=== PATIENT | male | born 2000 | race Caucasian/White ===

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

== ENCOUNTER → 2022-06-10 12:12 | Outpatient (BNVA) | payer MEDICAID, SELFPAY | PROVIDERS: Visit Provider Registered Nurse Neonatal Intensive Care | DX: J02.9 Acute pharyngitis, unspecified (principal) | CPT/HCPCS: 87070; 87071; 87880 ==

== ENCOUNTER 2022-08-23 21:57 | Emergency (ER) | payer MEDICAID, SELFPAY ==
[2022-08-23 21:59] VITALS: BP 142/97; PULSE 88; RESP 20; TEMP 36.4; O2SAT 97
[2022-08-23] MEDS: amoxicillin 500 mg Capsule 875 MG PO (22:33)
[2022-08-23] MEDS: ketorolac 60 mg/2 mL INJ IM (22:33)
[2022-08-23 22:38] VITALS: RESP 16; O2SAT 94
--- NOTE | 2022-08-24 02:29 | W.ED.DENTAL ---
HPI - Dental/Oral General: Chief complaint: Dental/Oral Stated complaint: Tooth ache\Feels his face is being crushed Time Seen by Provider: 08/23/22 21:59 History of Present Illness: Patient is in today for complaints of left upper tooth pain. Patient reports that just starting today he developed pain in the left side upper jaw at his teeth. 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 He states that he has not been to a dentist in years because he cannot afford it. He denies any fever, chills, nausea, vomiting. Associated symptoms: Denies fever(s) Review of Systems Const: Denies: fever(s) or chills ENMT: Reports: dental pain Card: Denies: chest pain, palpitations or irregular heart rhythm Resp: Denies: dyspnea, productive cough or non-productive cough GI: Denies: abdominal pain, nausea or vomiting : Denies: flank pain, difficulty urinating or dysuria Neuro: Denies: headache(s) PFSH ED PFSH: Family History Sister Spina bifida Father Bipolar 1 disorder Sister ADHD Social History Smoking and tobacco status: never smoked Physical Exam Const: COMMON NORMALS: no acute distress, patient oriented x3 and alert HENMT: TEETH & GINGIVA: Yes caries, Yes gingiva abnormal edematous and tender, Yes poor dentition and Yes teeth discoloration THROAT: posterior oropharynx normal and uvula midline OTHER: The teeth on his left upper jaw are mostly broken and there are numerous caries. His very far posterior molar on the left upper jaw is broken flush with the gingiva. There is gingival erythema and some edema. No drainable abscess is appreciated. Neck/C-Spine: COMMON NORMALS: no JVD Resp: COMMON NORMALS: normal respiratory effort and No use of accessory muscles Cardio: COMMON NORMALS: no JVD, regular rate, regular rhythm, S1 normal heart sound present, S2 normal heart sound present and No murmurs present (Cardio) RATE: regular rate RHYTHM: regular rhythm HEART SOUNDS: S1 normal heart sound present and S2 normal heart sound present Neuro: COMMON NORMALS: patient oriented x3 SENSORIUM/ORIENTATION: Yes alert Course Vital Signs: Vital signs: Vital Signs Temperature 97.6 F 08/23/22 21:59 Pulse Rate 88 08/23/22 21:59 Respiratory Rate 16 08/23/22 22:38 Blood Pressure 142/97 08/23/22 21:59 Pulse Oximetry 94 08/23/22 22:38 MDM - Dental/Oral Medical Decision Making Considered dental caries versus dental abscess versus gingival abscess versus gingivitis versus dental infection Treat patient to cover for a dental infection with no drainable abscess appreciated. Start patient on antibiotic medication first dose given in ER tonight. Dose of Toradol IM given tonight. Advised patient he needs follow-up with a dentist DUNG for ongoing treatment. Advised patient to return to the ER for new or worsening symptoms. Discharge Plan Discharge Patient Disposition: Home Clinical Impression: Dental caries, Toothache, Dental infection Condition: Stable Prescriptions: New amoxicillin 875 mg tablet 875 mg PO BID 10 Days Qty: 20 0RF No Action fluticasone propionate [Flonase Allergy Relief] 50 mcg/actuation spray,suspension 1 spray intranasal BID Qty: 16 0RF Rx Instructions: administer into each nostril Discharge Orders: Discharge ED (Routine); Ordered 08/23/22 Ordered By: Lana Cortez Discharge Diet: Usual diet Discharge Activity: Resume usual activity Patient Instructions: Dental Caries (Cavities) Activity Restrictions/Additional Instructions: Take antibiotics as directed starting tomorrow. Follow-up with the dentist as soon as possible. You may use warm salt water gargles, warm compresses. Alternate Tylenol and Motrin for pain. 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
== END 2022-08-23 22:39 | disposition home or self-care (01) ==
PROVIDERS: Emergency Provider Nurse Practitioner Family
DX: K02.9 Dental caries, unspecified (principal); K04.7 Periapical abscess without sinus
CPT/HCPCS: 96372; 99284; J1885

== ENCOUNTER 2022-11-22 08:58 | Inpatient (IN) | payer MEDICAID, SELFPAY ==
--- NOTE | 2022-11-22 09:03 | W.ED.PSYCHS ---
HPI - Psych General: Chief Complaint: Psychiatric Symptoms Stated Complaint: HI Time Seen by Provider: 11/22/22 09:02 Source: patient Mode of arrival: ambulatory Limitations: no limitations History of Present Illness: Patient is a 22-year-old male who presents to ED today requesting psychiatric evaluation and hospitalization. Patient tells me he is having multiple symptoms that he would like evaluated for. He states he believes he may have multiple personality disorder as he feels like he will blackout and commit physical violence on his siblings and then not remember doing it. He states he has voices that tell him different ways that he can kill people. He states at work the other day at [employer] he had daydreams throwing his coworkers onto the grill and in the deep fryer to kill them. He states while he was young and at school these voices would tell him different ways that he could kill his classmates with items found within the school. He states the voices have told him 8 different ways he can kill somebody with his bare hands . Patient often times states he has feelings of not being in this world . Patient denies suicidal ideations. MD complaint: other (HI) Onset (ago): year(s) Duration: intermittent History of same: Yes Relieving factors: none Exacerbating factors: none Associated psychiatric symptoms: homicidal ideation, auditory hallucinations and visual hallucinations Associated symptoms: Reports auditory hallucinations, visual hallucinations, depression and homicidal ideation; Deny suicidal ideation Treatments prior to arrival: none Review of Systems Const: Denies: fever(s) or chills Card: Denies: chest pain, palpitations, lightheadedness or syncope Resp: Denies: dyspnea GI: Denies: abdominal pain, nausea, vomiting or diarrhea Skin/Breast: Denies: rash Neuro: Denies: headache(s) Psych: Reports: anxiety, depression, irritability, visual hallucinations, auditory hallucinations and homicidal ideation; Denies: suicidal ideation PFS ED PFSH: Family History Sister Spina bifida Father Bipolar 1 disorder Sister ADHD Social History Smoking and tobacco status: never smoked Substance/Drug Use: never Physical Exam Const: COMMON NORMALS: no acute distress, patient oriented x3, alert and well nourished GENERAL APPEARANCE: cooperative and well kempt Resp: COMMON NORMALS: normal respiratory effort and clear to auscultation bilaterally AUSCULTATION: clear to auscultation bilaterally Cardio: COMMON NORMALS: regular rate and regular rhythm RATE: regular rate RHYTHM: regular rhythm Neuro: COMMON NORMALS: patient oriented x3 SENSORIUM/ORIENTATION: Yes alert Psych: COMMON NORMALS: mental status grossly normal, Normal thought process present, cooperative, normal affect, speech normal, activity/motor behavior normal and denies suicidal ideation APPEARANCE: Yes grossly normal and Yes well kempt ATTITUDE: Yes calm ACTIVITY/MOTOR BEHAVIOR: Yes appropriate eye contact and No psychomotor agitation SPEECH: Yes normal speech MOOD & AFFECT: Yes euthymic mood THOUGHT PROCESS: Normal thought process present ATTENTION/CONCENTRATION: Yes attention grossly intact and Yes concentration grossly intact MEMORY/COGNITION: Yes memory grossly intact and Yes cognition grossly intact INSIGHT: Good insight present (Psych) JUDGEMENT: Good judgement present (Psych) Skin: COMMON NORMALS: no rashes or lesions noted GENERAL SKIN EXAM: no rashes or lesions noted Course Consultations: Consultation #1: Dr. Fountain-accepts admission to [facility] Vital Signs: Vital signs: Vital Signs Temperature 97.9 F 11/22/22 11:26 Pulse Rate 81 11/22/22 09:13 Respiratory Rate 18 11/22/22 09:13 Blood Pressure 148/108 11/22/22 09:13 Pulse Oximetry 97 11/22/22 09:13 Oxygen Delivery Me thod Room Air 11/22/22 09:[address] [facility] - Psych Medical Decision Making Patient will be admitted to NPU for homicidal ideations and hallucinations. Lab Data 11/22/22 10:35 11/22/22 10:35 Laboratory Results WBC 5.7 10^3/uL (4.0-10.0) 11/22/22 10:35 RBC 5.75 10^6/uL (4.1-5.3) H 11/22/22 10:35 Hgb 16.3 g/dL (11.7-16.6) 11/22/22 10:35 Hct 46.9 % (42.0-52.0) 11/22/22 10:35 MCV 81.6 fl (80-94) 11/22/22 10:35 MCH 28.3 pg (28.0-34.0) 11/22/22 10:35 MCHC 34.8 g/dL (30.0-36.0) 11/22/22 10:35 RDW 12.2 % (12.1-15.1) 11/22/22 10:35 Plt Count 298 10^3/cmm (130-400) 11/22/22 10:35 MPV 8.7 fL (7.4-10.4) 11/22/22 10:35 Neut % (Auto) 54.3 % 11/22/22 10:35 Lymph % (Auto) 34.0 % 11/22/22 10:35 [place] % (Auto) 7.4 % 11/22/22 10:35 Eos % (Auto) 2.5 % 11/22/22 10:35 Baso % (Auto) 1.1 % 11/22/22 10:35 Neut # (Auto) 3.08 10^3/uL (1.8-7.7) 11/22/22 10:35 Lymph # (Auto) 1.9 10^3/uL (0.8-4.8) 11/22/22 10:35 [place] # (Auto) 0.4 10^3/uL (0.2-0.9) 11/22/22 10:35 Eos # (Auto) 0.1 10^3/uL (0.0-0.8) 11/22/22 10:35 Baso # (Auto) 0.1 10^3/uL (0.0-0.1) 11/22/22 10:35 Nucleated RBC % (auto) 0 % 11/22/22 10:35 Nucleated RBCs # 0.0 /100WBC 11/22/22 10:35 Sodium 139 mmol/L (136-145) 11/22/22 10:35 Potassium 4.1 mmol/L (3.5-5.1) 11/22/22 10:35 Chloride 102 mmol/L (98-107) 11/22/22 10:35 Carbon Dioxide 27 mmol/L (22-29) 11/22/22 10:35 Anion Gap 14.1 (5-19) 11/22/22 10:35 BUN 10 mg/dL (6-20) 11/22/22 10:35 Creatinine 1.0 mg/dL (0.7-1.2) 11/22/22 10:35 GFR Calculation 94.3 mL/min (90-130) 11/22/22 10:35 Glucose 84 mg/dL (65-115) 11/22/22 10:35 Calculated Osmolality 286 mOsm/kg (285-295) 11/22/22 10:35 Calcium 9.6 mg/dL (8.5-10.5) 11/22/22 10:35 Total Bilirubin 1.1 mg/dL (0.15-1.2) 11/22/22 10:35 AST 69 U/L (0-40) H 11/22/22 10:35 ALT 116 U/L (0-41) H 11/22/22 10:35 Alkaline Phosphatase 98 U/L (40-130) 11/22/22 10:35 Total Protein 8.0 g/dL (6.6-8.7) 11/22/22 10:35 Albumin 4.8 g/dL (3.5-5.2) 11/22/22 10:35 Globulin 3.2 g/dL (1.3-4.6) 11/22/22 10:35 Salicylates < 0.3 mg/dL (3-10) L 11/22/22 10:35 Urine Opiates Screen Negative ng/mL (Negative) 11/22/22 11:01 Acetaminophen < 5.0 ug/mL (10-30) L 11/22/22 10:35 Ur Barbiturates Screen Negative ng/mL (Negative) 11/22/22 11:01 Ur Phencyclidine Scrn Negative ng/mL (Negative) 11/22/22 11:01 Ur Amphetamines Screen Negative ng/mL (Negative) 11/22/22 11:01 U Benzodiazepines Scrn Negative ng/mL (Negative) 11/22/22 11:01 Urine Cocaine Screen Negative ng/mL (Negative) 11/22/22 11:01 U Marijuana (THC) Screen Positive ng/mL (Negative) H 11/22/22 11:01 Ethyl Alcohol < 10 mg/dL (0-10) 11/22/22 10:35 Discharge Plan Discharge Patient Disposition: Admitted As Inpatient Clinical Impression: Homicidal ideations, Hallucinations Condition: Stable Prescriptions: No Action No Known Home Medications Coding Level of Care Code 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
[2022-11-22 09:10] VITALS: BMI 31.1
[2022-11-22 09:13] VITALS: BP 148/108; PULSE 81; RESP 18; O2SAT 97
[2022-11-22 10:59] LABS: Basophils # 0.1 10^3/uL (0.0-0.1); Basophils % 1.1 %; Eosinophils # 0.1 10^3/uL (0.0-0.8); Eosinophils % 2.5 %; Hematocrit 46.9 % (42.0-52.0); Hemoglobin 16.3 g/dL (11.7-16.6); Lymphocytes # 1.9 10^3/uL (0.8-4.8); Mean Corpuscular HGB Conc 34.8 g/dL (30.0-36.0); Mean Corpuscular Hemoglobin 28.3 pg (28.0-34.0); Mean Corpuscular Volume 81.6 fl (80-94); Mean Platelet Volume 8.7 fL (7.4-10.4); Monocytes # 0.4 10^3/uL (0.2-0.9); Monocytes % 7.4 %; Neutrophils # 3.08 10^3/uL (1.8-7.7); Neutrophils % 54.3 %; Nucleated Red Blood Cells % 0 %; Platelet Count 298 10^3/cmm (130-400); Red Blood Count 5.75 10^6/uL (4.1-5.3); Red Cell Distribution Width 12.2 % (12.1-15.1); White Blood Count 5.7 10^3/uL (4.0-10.0)
[2022-11-22 11:15] LABS: Alanine Aminotransferase 116 U/L (0-41); Albumin Level 4.8 g/dL (3.5-5.2); Alkaline Phosphatase 98 U/L (40-130); Anion Gap 14.1 (5-19); Aspartate Amino Transferase 69 U/L (0-40); Blood Urea Nitrogen 10 mg/dL (6-20); Calcium 9.6 mg/dL (8.5-10.5); Carbon Dioxide 27 mmol/L (22-29); Chloride 102 mmol/L (98-107); Creatinine Clr Calc Pharmacy 145.9244; Globulin 3.2 g/dL (1.3-4.6); Glomerular Filtration Rate 94.3 mL/min (90-130); Glucose 84 mg/dL (65-115); Osmolality Calculated 286 mOsm/kg (285-295); Potassium 4.1 mmol/L (3.5-5.1); Sodium 139 mmol/L (136-145); Total Bilirubin 1.1 mg/dL (0.15-1.2)
[2022-11-22 11:18] LABS: Acetaminophen < 5.0 ug/mL (10-30); Alcohol Level < 10 mg/dL (0-10); Salicylate < 0.3 mg/dL (3-10)
[2022-11-22 11:26] VITALS: TEMP 36.6
[2022-11-22 11:59] LABS: Amphetamines Screen Urine Negative (Negative); Barbiturates Screen Urine Negative (Negative); Benzodiazepines Screen Urine Negative (Negative); Cocaine Screen Urine Negative (Negative); Opiate Screen Urine Negative (Negative); PCP Screen Urine Negative (Negative); THC Screen Urine Positive (Negative)
[2022-11-22 13:54] VITALS: BP 123/80
[2022-11-22 14:07] VITALS: BP 120/83; PULSE 70; RESP 18; TEMP 36.7; O2SAT 97
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
[2022-11-22 22:00] VITALS: BP 126/85; PULSE 62; RESP 16; TEMP 36.8; O2SAT 98
[2022-11-23 05:59] VITALS: RESP 16
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
[2022-11-23] MEDS: buPROPion XL (24 HR) 150 mg Tablet PO (13:59)
[2022-11-23 14:00] VITALS: BP 135/79; PULSE 97; RESP 20; TEMP 36.8; O2SAT 98
[2022-11-23 20:10] VITALS: BP 128/91; PULSE 82; RESP 18; TEMP 36.4; O2SAT 99
[2022-11-24 06:00] VITALS: RESP 16
[2022-11-24] MEDS: buPROPion XL (24 HR) 150 mg Tablet PO (09:42)
[2022-11-24 14:00] VITALS: BP 117/86; PULSE 119; RESP 20; TEMP 36.9; O2SAT 93
[2022-11-24] MEDS: acetaminophen 325 mg Tablet 650 MG PO (16:57)
--- NOTE | 2022-11-24 19:21 | W.PM.NPUPNS ---
Subjective NPU Subjective: Patient presents today reporting that things are better. He reports that he has had clarity of thought which is significantly better than he has previously. He reports that the medication has worked effectively and he is feeling safe and not having any voices or unsavory thoughts the possibility of discharge in the next 48 hours and agreed to talk about the possibility of him leaving in the morning tomorrow. Mental Status Exam MSE Comments: This is a overweight versus obese white male in hospital scrubs with adequate grooming and eye contact. No abnormal movements except for mild psychomotor retardation. Cooperative with exam and mild distress. Speech was slightly decreased rate and volume. Mood described as better, affect congruent. Thought process organized. Thought content: Patient denied suicidal or homicidal ideation, there were no delusions reported or noted, he denied auditory or visual hallucinations. Attention and concentration were intact and memory was mostly reliable but none were formally tested. He is alert and oriented x3. Insight and judgment limited, but improving impulse control limited. Vitals/I&O/Wt Last Vital Signs Temp 98.5 F 11/24/22 14:00 Pulse 119 H 11/24/22 14:00 Resp 20 H 11/24/22 14:00 BP 117/86 11/24/22 14:00 Pulse Ox 93 11/24/22 14:00 O2 Del Method Room Air 11/23/22 20:10 Data NPU 11/22/22 10:35 11/22/22 10:35 A&P Assessment and plan (1) Homicidal ideations: (2) Hallucinations: (3) Viral URI: (4) Major depressive disorder, recurrent: (5) Anxiety disorder, unspecified: Plan This is a 22-year-old white male with a long history of auditory hallucinations without treatment some addictive behaviors presenting with depression and anxiety in addition to the auditory hallucinations somewhat ambivalent about treatment but open to trying some options. 1. Started Wellbutrin XL 150 mg p.o. every morning. He is currently resistant to starting the Abilify and reporting that he has had dramatic improvement. 2. Encourage individual, group and milieu therapy. 3. Continue every 15 minute checks for safety. 4. Encourage sober living treatment after discharge at the highest level of care to which he is willing to commit. Involuntary Hold Information 96 Hour Hold: 96 Hour Involuntary Admission: No Attestations NPU Medical Necessity Statement*: Inpatient hospitalization is medically necessary and the clinically appropriate intervention at this time. We will monitor/initiate medications and make changes as indicated. Likely length of stay 3 to 5 days Coding Level of Care Code Acute Code for Chg Fwd Diagnoses Homicidal ideations R45.850 Hallucinations R44.3 Viral URI J06.9 Major depressive disorder, recurrent F33.9 Anxiety disorder, unspecified F41.9
[2022-11-24 21:57] VITALS: RESP 15
[2022-11-25 06:00] VITALS: BP 128/93; PULSE 89; RESP 18; TEMP 36.4; O2SAT 99
[2022-11-25] MEDS: buPROPion XL (24 HR) 150 mg Tablet PO (08:52)
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
[2022-11-25 11:23] VITALS: BP 128/93; PULSE 89; RESP 18; TEMP 36.4; O2SAT 99
== END 2022-11-25 12:50 | disposition home or self-care (01) | DRG 885 ==
LOC: ER 12:08 → NP 13:38
PROVIDERS: Admitting Provider Psychiatry & Neurology Psychiatry; Emergency Provider Physician Assistant; Visit Provider Psychiatry & Neurology Psychiatry
DX: F33.9 Major depressive disorder, recurrent, unspecified (principal); R44.0 Auditory hallucinations; F41.9 Anxiety disorder, unspecified; R45.850 Homicidal ideations; E66.9 Obesity, unspecified; Z68.31 Body mass index [BMI] 31.0-31.9, adult; Z81.8 Family history of other mental and behavioral disorders
CPT/HCPCS: 36415; 80053; 80306; 80307; 85025; 96365; 97165; 99285

== ENCOUNTER 2023-04-21 15:33 | Emergency (ER) | payer SELFPAY ==
[2023-04-21 15:45] VITALS: BP 140/86; PULSE 73; RESP 18; TEMP 36.8; O2SAT 97
--- NOTE | 2023-04-21 16:19 | ED.C_ITS ---
HPI - Psych General: Chief Complaint: Psychiatric Symptoms Stated Complaint: PSYCH EVAL; SYNCOPE Time Seen by Provider: 04/21/23 15:49 History of Present Illness: Patient presents to the ER for syncope and psych eval. Patient states he fell at work today but is on for sure if he hit his head and denies any pain at this time. 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 Patient states sometimes a Felipe is not here that he has dark and that he gets a when he flips Felipe is here now. Patient does state he hears voices and the voices tell him to hurt himself and hurt other people but he has not acted upon these and does not have a plan. Patient has been inpatient in our psychiatric unit before. Review of Systems General: Reports: 10 or more systems reviewed and unremarkable except in HPI and below PFSH ED PFSH: Medical History SADIA (generalized anxiety disorder) Psychiatric care Family History Sister Spina bifida Father Bipolar 1 disorder Sister ADHD Social History Smoking and tobacco status: never smoked Substance/Drug Use: never Physical Exam Const: COMMON NORMALS: no acute distress, average body habitus, patient oriented x3, no limitations, healthy appearing, alert and well nourished HENMT: COMMON NORMALS: normocephalic, atraumatic, hearing grossly normal bilaterally, external ears normal, Normal external nose present and moist oral mucous membranes HEAD & SCALP: normocephalic and atraumatic NOSE: Normal external nose present EXTERNAL EAR: Yes external ears normal Eye: COMMON NORMALS: Equal, round and reactive pupils present, EOMs intact bilaterally, conjunctivae normal and no scleral icterus CONJUNCTIVA: Yes conjunctivae normal PUPIL: Yes Equal, round and reactive pupils present Neck/C-Spine: COMMON NORMALS: full ROM, no lymphadenopathy, supple, no m eningeal signs, no JVD and Thyroid normal THYROID: Thyroid normal Lymph: LYMPHATIC: no lymphadenopathy noted Chest: COMMONS NORMALS: normal inspection of the chest and normal palpation of entire chest wall Resp: COMMON NORMALS: normal respiratory effort, No retractions, No use of accessory muscles and clear to auscultation bilaterally AUSCULTATION: clear to auscultation bilaterally Cardio: COMMON NORMALS: no JVD, regular rate, regular rhythm, S1 normal heart sound present, S2 normal heart sound present, No gallops present (Cardio), No clicks present (Cardio), No murmurs present (Cardio) and No rub (Cardio) R ATE: regular rate RHYTHM: regular rhythm HEART SOUNDS: S1 normal heart sound present and S2 normal heart sound present GI: COMMON NORMALS: Normal to inspection, nondistended, normoactive bowel sounds present, Soft to palpation, non-tender, No hepatosplenomegaly present and no masses PALPATION: Yes Soft to palpation and Yes No hepatosplenomegaly present : COMMON NORMALS: Yes no CVA tenderness BLADDER/KIDNEY EXAM: Yes no CVA tenderness Back/Pelvis: COMMON NORMALS: no CVA tenderness Neuro: COMMON NORMALS: patient oriented x3 SENSORIUM/ORIENTATION: Yes alert MENINGEAL SIGNS: Yes no meningeal signs Course Vital Signs: Vital signs: Vital Signs Temperature 98.2 F 04/21/23 15:45 Pulse Rate 73 04/21/23 15:45 Respiratory Rate 18 04/21/23 15:45 Blood Pressure 140/86 04/21/23 15:45 Pulse Oximetry 97 04/21/23 15:45 Oxygen Delivery Me thod Room Air 04/21/23 15:45 MDM - Psych Medical Decision Making We are waiting for his getting all the results back patient decided he wanted to leave, and wanted to leave immediately. I went talk with him about his lab results and talking to Dr. Fountain and getting his opinion but he just dated he just wanted to leave I ask him if I could finish his paperwork which would only take about 10 minutes and then we can officially discharge him and he just that he wanted to leave. So patient will sign an AMA form and will leave. Patient is not suicidal or homicidal at this moment and he knows that if he becomes either 1 of these to come back immediately. Differential Diagnosis Unlikely acute psychosis, chronic schizophrenia, suicidal ideation, bipolar disorder, depression, drug-induced psychotic disorder or acute anxiety Medical Records I reviewed the patient's medical records. Lab Data I reviewed the patient's lab results. 04/21/23 15:50 04/21/23 15:50 Laboratory Results WBC 8.83 10^3/uL (3.29-11.43) 04/21/23 15:50 RBC 5.42 10^6/uL (3.85-5.65) 04/21/23 15:50 Hgb 15.10 g/dL (11.27-16.99) 04/21/23 15:50 Hct 44.2 % (37-53) 04/21/23 15:50 MCV 81.5 fl (82-101) L 04/21/23 15:50 MCH 27.9 pg (27-33) 04/21/23 15:50 MCHC 34.2 g/dL (30-55) 04/21/23 15:50 RDW 12.4 % (12.1-15.1) 04/21/23 15:50 Plt Count 369 10^3/cmm (157-399) 04/21/23 15:50 MPV 9.0 fL (7.4-10.4) 04/21/23 15:50 Neut % (Auto) 62.3 % 04/21/23 15:50 Lymph % (Auto) 28.2 % 04/21/23 15:50 [place] % (Auto) 6.5 % 04/21/23 15:50 Eos % (Auto) 1.9 % 04/21/23 15:50 Baso % (Auto) 0.8 % 04/21/23 15:50 Neut # (Auto) 5.50 10^3/uL (1.8-7.7) 04/21/23 15:50 Lymph # (Auto) 2.5 10^3/uL (0.8-4.8) 04/21/23 15:50 [place] # (Auto) 0.6 10^3/uL (0.2-0.9) 04/21/23 15:50 Eos # (Auto) 0.2 10^3/uL (0.0-0.8) 04/21/23 15:50 Baso # (Auto) 0.1 10^3/uL (0.0-0.1) 04/21/23 15:50 Nucleated RBC % (auto) 0 % 04/21/23 15:50 Nucleated RBCs # 0.0 /100WBC 04/21/23 15:50 Sodium 141 mmol/L (136-145) 04/21/23 15:50 Potassium 4.4 mmol/L (3.5-5.1) 04/21/23 15:50 Chloride 103 mmol/L (98-107) 04/21/23 15:50 Carbon Dioxide 28 mmol/L (22-29) 04/21/23 15:50 Anion Gap 14.4 (5-19) 04/21/23 15:50 BUN 12 mg/dL (6-20) 04/21/23 15:50 Creatinine 1.2 mg/dL (0.7-1.2) 04/21/23 15:50 GFR Calculation 76.4 mL/min (90-130) L 04/21/23 15:50 Glucose 83 mg/dL (65-115) 04/21/23 15:50 Calculated Osmolality 291 mOsm/kg (285-295) 04/21/23 15:50 Calcium 9.8 mg/dL (8.5-10.5) 04/21/23 15:50 Total Bilirubin 0.7 mg/dL (0.15-1.2) 04/21/23 15:50 AST 31 U/L (0-40) 04/21/23 15:50 ALT 53 U/L (0-41) H 04/21/23 15:50 Alkaline Phosphatase 109 U/L (40-130) 04/21/23 15:50 Total Protein 8.1 g/dL (6.6-8.7) 04/21/23 15:50 Albumin 4.9 g/dL (3.5-5.2) 04/21/23 15:50 Globulin 3.2 g/dL (1.3-4.6) 04/21/23 15:50 Urine Color Dark yellow (Yellow) 04/21/23 16:04 Urine Appearance Clear (CLEAR) 04/21/23 16:04 Urine pH 5 (5-7) 04/21/23 16:04 Ur Specific [place] 1.030 (1.005-1.030) 04/21/23 16:04 Urine Protein Neg (Negative) 04/21/23 16:04 Urine Glucose (UA) Norm (Normal) 04/21/23 16:04 Urine Ketones Negative (Negative) 04/21/23 16:04 Urine Blood Neg (Negative) 04/21/23 16:04 Urine Nitrate Negative (Negative) 04/21/23 16:04 Urine Bilirubin 1+ (Negative) H 04/21/23 16:04 Urine Urobilinogen 1 mg/dL (Negative) H 04/21/23 16:04 Ur Leukocyte Esterase Negative (Negative) 04/21/23 16:04 Salicylates 1.0 mg/dL (3-10) L 04/21/23 15:50 Urine Opiates Screen Negative ng/mL (Negative) 04/21/23 16:04 Acetaminophen < 5.0 ug/mL (10-30) L 04/21/23 15:50 Ur Barbiturates Screen Negative ng/mL (Negative) 04/21/23 16:04 Ur Phencyclidine Scrn Negative ng/mL (Negative) 04/21/23 16:04 Ur Amphetamines Screen Negative ng/mL (Negative) 04/21/23 16:04 U Benzodiazepines Scrn Positive ng/mL (Negative) H 04/21/23 16:04 Urine Cocaine Screen Negative ng/mL (Negative) 04/21/23 16:04 U Marijuana (THC) Screen Positive ng/mL (Negative) H 04/21/23 16:04 Ethyl Alcohol < 10 mg/dL (0-10) 04/21/23 15:50 No radiology studies performed this visit Discharge Plan Discharge Patient Disposition: Left Against Medical Advice Clinical Impression: Bipolar disorder Condition: Stable Prescriptions: No Action aripiprazole 10 mg tablet 10 mg PO DAILY Qty: 30 0RF Rx Instructions: Take one tablet daily at bedtime; stop 5 mg dose fluoxetine 40 mg capsule 80 mg PO .q am Qty: 60 0RF Rx Instructions: Take two capsules by mouth daily every morning Coding Level of Care Code ED Health Unit Supervisor for Pat Lbaoy
[2023-04-21 16:30] LABS: Basophils # 0.1 10^3/uL (0.0-0.1); Basophils % 0.8 %; Eosinophils # 0.2 10^3/uL (0.0-0.8); Eosinophils % 1.9 %; Hematocrit 44.2 % (37-53); Lymphocytes # 2.5 10^3/uL (0.8-4.8); Lymphocytes % 28.2 %; Mean Corpuscular HGB Conc 34.2 g/dL (30-55); Mean Corpuscular Hemoglobin 27.9 pg (27-33); Mean Corpuscular Volume 81.5 fl (82-101); Monocytes # 0.6 10^3/uL (0.2-0.9); Monocytes % 6.5 %; Neutrophils % 62.3 %; Nucleated Red Blood Cells % 0 %; Platelet Count 369 10^3/cmm (157-399); Red Blood Count 5.42 10^6/uL (3.85-5.65); Red Cell Distribution Width 12.4 % (12.1-15.1); White Blood Count 8.83 10^3/uL (3.29-11.43)
[2023-04-21 16:48] LABS: Alanine Aminotransferase 53 U/L (0-41); Albumin Level 4.9 g/dL (3.5-5.2); Alkaline Phosphatase 109 U/L (40-130); Anion Gap 14.4 (5-19); Aspartate Amino Transferase 31 U/L (0-40); Blood Urea Nitrogen 12 mg/dL (6-20); Calcium 9.8 mg/dL (8.5-10.5); Carbon Dioxide 28 mmol/L (22-29); Chloride 103 mmol/L (98-107); Globulin 3.2 g/dL (1.3-4.6); Glomerular Filtration Rate 76.4 mL/min (90-130); Glucose 83 mg/dL (65-115); Osmolality Calculated 291 mOsm/kg (285-295); Potassium 4.4 mmol/L (3.5-5.1); Sodium 141 mmol/L (136-145); Total Bilirubin 0.7 mg/dL (0.15-1.2); Total Protein 8.1 g/dL (6.6-8.7)
[2023-04-21 16:51] LABS: Acetaminophen < 5.0 ug/mL (10-30)
[2023-04-21 16:52] LABS: Alcohol Level < 10 mg/dL (0-10)
[2023-04-21 17:28] LABS: Add Urine Microscopic? NO; Charge for UA Resulting for Rev
[2023-04-21 17:32] LABS: Bilirubin Urine 1+ (Negative); Blood Urine Neg (Negative); Glucose Urine UA Norm (Normal); Ketones Urine Negative (Negative); Leukocyte Esterase Urine Negative (Negative); Nitrate Urine Negative (Negative); Protein Urine Neg (Negative); Urine Appearance Clear (CLEAR); Urine Color Dark Yellow (Yellow); Urobilinogen Urine 1 mg/dL (Negative); pH Urine 5 (5-7)
[2023-04-21 17:51] LABS: Amphetamines Screen Urine Negative (Negative); Barbiturates Screen Urine Negative (Negative); Benzodiazepines Screen Urine Positive (Negative); Cocaine Screen Urine Negative (Negative); Opiate Screen Urine Negative (Negative); PCP Screen Urine Negative (Negative); THC Screen Urine Positive (Negative)
--- NOTE | 2023-04-21 18:14 | PC.NURSE ---
to room. pt states he wants to leave. notified.
== END 2023-04-21 18:16 | disposition left against medical advice (07) ==
PROVIDERS: Emergency Provider Emergency Medicine
DX: F31.9 Bipolar disorder, unspecified (principal); Z53.21 Procedure and treatment not carried out due to patient leaving prior to being seen by health care provider
CPT/HCPCS: 80053; 80306; 80307; 81003; 85025; 99283

== ENCOUNTER → 2023-05-14 14:31 | Outpatient (BNVA) | payer OTHER, SELFPAY | PROVIDERS: Visit Provider Nurse Practitioner Psychiatric/Mental Health | DX: Z03.89 Encounter for observation for other suspected diseases and conditions ruled out (principal) | CPT/HCPCS: 80061; 83036 ==

== ENCOUNTER 2023-06-14 16:32 | Inpatient (IN) | payer SELFPAY ==
[2023-06-14 16:37] VITALS: BP 120/83; PULSE 70; TEMP 37.1; O2SAT 100; BMI 34.8
[2023-06-14 16:58] LABS: Basophils # 0.1 10^3/uL (0.0-0.1); Basophils % 0.6 %; Eosinophils # 0.1 10^3/uL (0.0-0.8); Eosinophils % 1.1 %; Hematocrit 47.8 % (37-53); Lymphocytes # 2.1 10^3/uL (0.8-4.8); Lymphocytes % 18.2 %; Mean Corpuscular HGB Conc 33.9 g/dL (30-55); Mean Corpuscular Hemoglobin 28.2 pg (27-33); Mean Corpuscular Volume 83.3 fl (82-101); Mean Platelet Volume 8.6 fL (7.4-10.4); Monocytes # 0.8 10^3/uL (0.2-0.9); Monocytes % 6.8 %; Neutrophils # 8.53 10^3/uL (1.8-7.7); Nucleated Red Blood Cells % 0 %; Platelet Count 340 10^3/cmm (157-399); Red Blood Count 5.74 10^6/uL (3.85-5.65); Red Cell Distribution Width 12.7 % (12.1-15.1); White Blood Count 11.69 10^3/uL (3.29-11.43)
[2023-06-14 17:04] LABS: Add Urine Microscopic? NO; Charge for UA Resulting for Rev
[2023-06-14 17:18] LABS: Alanine Aminotransferase 86 U/L (0-41); Albumin Level 4.8 g/dL (3.5-5.2); Alkaline Phosphatase 97 U/L (40-130); Aspartate Amino Transferase 54 U/L (0-40); Blood Urea Nitrogen 14 mg/dL (6-20); Calcium 9.5 mg/dL (8.5-10.5); Carbon Dioxide 28 mmol/L (22-29); Chloride 101 mmol/L (98-107); Globulin 3.4 g/dL (1.3-4.6); Glomerular Filtration Rate 83.7 mL/min (90-130); Glucose 88 mg/dL (65-115); Osmolality Calculated 290 mOsm/kg (285-295); Sodium 140 mmol/L (136-145); Total Bilirubin 1.7 mg/dL (0.15-1.2); Total Protein 8.2 g/dL (6.6-8.7)
[2023-06-14 17:23] LABS: Acetaminophen < 5.0 ug/mL (10-30); Alcohol Level < 10 mg/dL (0-10); Salicylate < 0.3 mg/dL (3-10)
--- NOTE | 2023-06-14 17:23 | W.ED.PSYCHS ---
HPI - Psych General: Chief Complaint: Psychiatric Symptoms Stated Complaint: SI Time Seen by Provider: 06/14/23 16:37 History of Present Illness: Patient presents here via EMS with a please officer for mental health exam secondary to suicidal ideation with plan. Patient was found alongside the road by EMS states he was fighting voices and they were telling him to jump in front of a car laying in the road to the car rinse him over. Patient states he would voluntarily jump in front of traffic. Patient denies using any psych medicines and states I do not want to. Patient reports having multiple life stressors but will not go into detail with this. Patient has been to [facility] before. Review of Systems General: Reports: 10 or more systems reviewed and unremarkable except in HPI and below PFSH ED PFSH: Medical History SADIA (generalized anxiety disorder) Psychiatric care Family History Sister Spina bifida Father Bipolar 1 disorder Sister ADHD Social History Smoking and tobacco/nicotine status: never used tobacco/nicotine Substance/Drug Use: never Physical Exam Const: COMMON NORMALS: no acute distress, average body habitus, patient oriented x3, no limitations, healthy appearing, alert and well nourished HENMT: COMMON NORMALS: normocephalic, hearing grossly normal bilaterally, external ears normal, Normal external nose present, moist oral mucous membranes and oropharynx normal HEAD & SCALP: normocephalic NOSE: Normal external nose present EXTERNAL EAR: Yes external ears normal Neck/C-Spine: COMMON NORMALS: no JVD Chest: COMMONS NORMALS: normal inspection of the chest and normal palpation of entire chest wall Resp: COMMON NORMALS: normal respiratory effort, No retractions, No use of accessory muscles and clear to auscultation bilaterally AUSCULTATION: clear to auscultation bilaterally Cardio: COMMON NORMALS: no JVD, regular rate, regular rhythm, S1 normal heart sound present, S2 normal heart sound present, No gallops present (Cardio), No clicks present (Cardio), No murmurs present (Cardio) and No rub (Cardio) RATE: regular rate RHYTHM: regular rhythm HEART SOUNDS: S1 normal heart sound present and S2 normal heart sound present GI: COMMON NORMALS: Normal to inspection, nondistended, normoactive bowel sounds present, Soft to palpation, non-tender, No hepatosplenomegaly present and no masses PALPATION: Yes Soft to palpation and Yes No hepatosplenomegaly present Neuro: COMMON NORMALS: patient oriented x3 SENSORIUM/ORIENTATION: Yes alert Course Vital Signs: Vital signs: Vital Signs Temperature 98.7 F 06/14/23 16:37 Pulse Rate 70 06/14/23 16:37 Respiratory Rate 16 06/14/23 20:38 Blood Pressure 120/83 06/14/23 16:37 Pulse Oximetry 100 06/14/23 16:37 Oxygen Delivery Me thod Room Air 06/14/23 16:37 MDM - Psych Medical Decision Making Patient presented by EMS and community relations police lieutenant for suicidal ideation. Patient be worked up in the normal psychiatric fashion. Anticipate patient will be placed in MPU either voluntarily or a 96-hour hold. Dr. Fountain accepted patient in transfer to admission for MPU for further evaluation and work-up. Differential Diagnosis Likely suicidal ideation; Unlikely acute psychosis, chronic schizophrenia, bipolar disorder, depression, drug-induced psychotic disorder or acute anxiety Medical Records I reviewed the patient's medical records. Lab Data I reviewed the patient's lab results. 06/14/23 16:51 06/14/23 16:51 Laboratory Results WBC 11.69 10^3/uL (3.29-11.43) H 06/14/23 16:51 RBC 5.74 10^6/uL (3.85-5.65) H 06/14/23 16:51 Hgb 16.20 g/dL (11.27-16.99) 06/14/23 16:51 Hct 47.8 % (37-53) 06/14/23 16:51 MCV 83.3 fl (82-101) 06/14/23 16:51 MCH 28.2 pg (27-33) 06/14/23 16:51 MCHC 33.9 g/dL (30-55) 06/14/23 16:51 RDW 12.7 % (12.1-15.1) 06/14/23 16:51 Plt Count 340 10^3/cmm (157-399) 06/14/23 16:51 MPV 8.6 fL (7.4-10.4) 06/14/23 16:51 Neut % (Auto) 73.0 % 06/14/23 16:51 Lymph % (Auto) 18.2 % 06/14/23 16:51 [place] % (Auto) 6.8 % 06/14/23 16:51 Eos % (Auto) 1.1 % 06/14/23 16:51 Baso % (Auto) 0.6 % 06/14/23 16:51 Neut # (Auto) 8.53 10^3/uL (1.8-7.7) H 06/14/23 16:51 Lymph # (Auto) 2.1 10^3/uL (0.8-4.8) 06/14/23 16:51 [place] # (Auto) 0.8 10^3/uL (0.2-0.9) 06/14/23 16:51 Eos # (Auto) 0.1 10^3/uL (0.0-0.8) 06/14/23 16:51 Baso # (Auto) 0.1 10^3/uL (0.0-0.1) 06/14/23 16:51 Nucleated RBC % (auto) 0 % 06/14/23 16:51 Nucleated RBCs # 0.0 /100WBC 06/14/23 16:51 Sodium 140 mmol/L (136-145) 06/14/23 16:51 Potassium 4.0 mmol/L (3.5-5.1) 06/14/23 16:51 Chloride 101 mmol/L (98-107) 06/14/23 16:51 Carbon Dioxide 28 mmol/L (22-29) 06/14/23 16:51 Anion Gap 15.0 (5-19) 06/14/23 16:51 BUN 14 mg/dL (6-20) 06/14/23 16:51 Creatinine 1.1 mg/dL (0.7-1.2) 06/14/23 16:51 GFR Calculation 83.7 mL/min (90-130) L 06/14/23 16:51 Glucose 88 mg/dL (65-115) 06/14/23 16:51 Calculated Osmolality 290 mOsm/kg (285-295) 06/14/23 16:51 Calcium 9.5 mg/dL (8.5-10.5) 06/14/23 16:51 Total Bilirubin 1.7 mg/dL (0.15-1.2) H 06/14/23 16:51 AST 54 U/L (0-40) H 06/14/23 16:51 ALT 86 U/L (0-41) H 06/14/23 16:51 Alkaline Phosphatase 97 U/L (40-130) 06/14/23 16:51 Total Protein 8.2 g/dL (6.6-8.7) 06/14/23 16:51 Albumin 4.8 g/dL (3.5-5.2) 06/14/23 16:51 Globulin 3.4 g/dL (1.3-4.6) 06/14/23 16:51 Urine Color Dark yellow (Yellow) 06/14/23 16:49 Urine Appearance Clear (CLEAR) 06/14/23 16:49 Urine pH 6 (5-7) 06/14/23 16:49 Ur Specific [place] 1.030 (1.005-1.030) 06/14/23 16:49 Urine Protein Neg (Negative) 06/14/23 16:49 Urine Glucose (UA) Norm (Normal) 06/14/23 16:49 Urine Ketones Negative (Negative) 06/14/23 16:49 Urine Blood Neg (Negative) 06/14/23 16:49 Urine Nitrate Negative (Negative) 06/14/23 16:49 Urine Bilirubin Neg (Negative) 06/14/23 16:49 Urine Urobilinogen 1 mg/dL (Negative) H 06/14/23 16:49 Ur Leukocyte Esterase Negative (Negative) 06/14/23 16:49 Salicylates < 0.3 mg/dL (3-10) L 06/14/23 16:51 Urine Opiates Screen Negative ng/mL (Negative) 06/14/23 16:49 Acetaminophen < 5.0 ug/mL (10-30) L 06/14/23 16:51 Ur Barbiturates Screen Negative ng/mL (Negative) 06/14/23 16:49 Ur Phencyclidine Scrn Negative ng/mL (Negative) 06/14/23 16:49 Ur Amphetamines Screen Negative ng/mL (Negative) 06/14/23 16:49 U Benzodiazepines Scrn Negative ng/mL (Negative) 06/14/23 16:49 Urine Cocaine Screen Negative ng/mL (Negative) 06/14/23 16:49 U Marijuana (THC) Screen Positive ng/mL (Negative) H 06/14/23 16:49 Ethyl Alcohol < 10 mg/dL (0-10) 06/14/23 16:51 No radiology studies performed this visit Discharge Plan Discharge Patient Disposition: Admitted As Inpatient Admit Provider: Domenic Fountain Clinical Impression: Suicidal ideation Condition: Stable Coding Level of Care Code ED Regional Facilities Specialist for Pat Laboy
[2023-06-14 17:28] LABS: Bilirubin Urine Neg (Negative); Blood Urine Neg (Negative); Glucose Urine UA Norm (Normal); Ketones Urine Negative (Negative); Leukocyte Esterase Urine Negative (Negative); Nitrate Urine Negative (Negative); Protein Urine Neg (Negative); Urine Appearance Clear (CLEAR); Urine Color Dark Yellow (Yellow); Urobilinogen Urine 1 mg/dL (Negative); pH Urine 6 (5-7)
[2023-06-14 17:29] LABS: Amphetamines Screen Urine Negative (Negative); Barbiturates Screen Urine Negative (Negative); Benzodiazepines Screen Urine Negative (Negative); Cocaine Screen Urine Negative (Negative); Opiate Screen Urine Negative (Negative); PCP Screen Urine Negative (Negative); THC Screen Urine Positive (Negative)
--- NOTE | 2023-06-14 18:34 | PC.NURSE ---
96 hr patient rights reviewed with patient with SHANTE Sin RN @[id number]. Patient not receptive to the 96 hold order and states he is not going to stay here. HS tried to educate patient on the process of the 96 hr hold. Patient continued to not be receptive, but stated he knew what the 96 hr hold meant. Patient copy left with patient. No needs verbalized at this time.
[2023-06-14] MEDS: diphenhydrAMINE 50 mg/mL SDV 1mL IM (19:27)
[2023-06-14] MEDS: haloperidol inj 5 mg/mL INJ 1 mL IM (19:27)
[2023-06-14] MEDS: LORazepam 2 mg/mL INJ 1 mL IM (19:27)
--- NOTE | 2023-06-14 19:27 | PC.NURSE ---
Patient is refusing to go to NPU, states he will run out of the ER. Security and house sup present. Dr Cole aware, ordered medication for patient. Isabel THRASHER present. Pt educated that he is on a 96 hour hold and can not leave due to statements he previously made about ending his life. Pt still refused to get in the wheelchair to go to NPU. Medication Dr Cole ordered has been given.
--- NOTE | 2023-06-14 20:36 | PC.NURSE ---
Pt arrived to NPU via security and RN on nikolas. Pt present somnolent. Will attempt assessment when awake.
[2023-06-14 20:38] VITALS: RESP 16
[2023-06-15 06:00] VITALS: BP 101/63; PULSE 103; RESP 18; TEMP 36.5; O2SAT 95
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
[2023-06-15 14:00] VITALS: BP 135/74; PULSE 69; RESP 16; TEMP 36.8; O2SAT 98
[2023-06-15] MEDS: ARIPiprazole 10 mg Tablet PO (15:27)
[2023-06-15 20:10] VITALS: BP 122/88; PULSE 117; RESP 18; TEMP 36.5; O2SAT 95
[2023-06-16 06:00] VITALS: BP 122/88; PULSE 110; RESP 18; TEMP 36.8; O2SAT 98
--- NOTE | 2023-06-16 07:07 | P.NPUPN_ITS ---
Subjective NPU Subjective: Patient presented today reporting that he is doing okay. He was much less worked up about discharge today. We discussed Dr. Nieves coming tomorrow him being the one who will ultimately decide about discharge. We discussed the possibility of restarting his Wellbutrin XL after discussion of the risks, benefits and alternatives he understood and agreed to consider it. He denied any side effects to the Abilify. Mental Status Exam MSE Comments: This is an obese white male in hospital scrubs with limited grooming and eye contact. No abnormal movements except for mild psychomotor retardation. Cooperative with exam and mild distress. Speech was slightly decreased rate and volume. Mood described as okay, affect less anxious and irritable. Thought process organized. Thought content: Patient denied suicidal or homicidal ideation, there were no delusions reported or noted, he denied auditory or visual hallucinations. Attention and concentration were intact and memory was somewhat reliable but none were formally tested. He is alert and oriented x3. Insight and judgment limited, and impulse control impaired. Vitals/I&O/Wt Last Vital Signs Temp 98.3 F 06/16/23 06:00 Pulse 110 H 06/16/23 06:00 Resp 18 06/16/23 06:00 BP 122/88 06/16/23 06:00 Pulse Ox 98 06/16/23 06:00 O2 Del Method Room Air 06/16/23 06:00 Weight last 48 hrs Weight 113.398 kg Data NPU 06/14/23 16:51 06/14/23 16:51 A&P Assessment and plan (1) Homicidal ideations: (2) Hallucinations: (3) Viral URI: (4) Major depressive disorder, recurrent: Qualifiers: Active/Remission status: currently active Major depression episode severity: severe Psychotic features: without psychotic features Qualified Code(s): F33.2 - Major depressive disorder, recurrent severe without psychotic features (5) Anxiety disorder, unspecified: Qualifiers: Anxiety disorder type: generalized anxiety disorder Qualified Code(s): F41.1 - Generalized anxiety disorder Plan This is a 23-year-old white male with a long history of auditory hallucinations with recent hospitalization here with limited follow-up with some addictive behaviors presenting after being placed on a 96-hour hold secondary to being found on the side of the road crying and having what he describes as a breakdown. Presenting desiring to discharge immediately but open to a trial of Abilify. 1. Started Abilify 10 mg p.o. every morning. We will consider restarting Wellbutrin XL. 2. Encourage individual, group and milieu therapy. 3. Continue every 15 minute checks for safety. 4. Encourage sober living treatment after discharge at the highest level of care to which he is willing to commit. Involuntary Hold Information 96 Hour Hold: 96 Hour Involuntary Admission: No 96 Hour Hold Ending Date: 06/20/23 96 Hour Hold Ending Time: 17:45 Attestations NPU Medical Necessity Statement*: Inpatient hospitalization is medically necessary and the clinically appropriate intervention at this time. We will monitor/initiate medications and make changes as indicated. Likely length of stay 2-4 days Coding Level of Care Code Acute Code for [facility] Fwd Diagnoses Homicidal ideations R45.850 Hallucinations R44.3 Viral URI J06.9 Major depressive disorder, recurrent F33.2 Active/Remission status: currently active Major depression episode severity: severe Psychotic features: without psychotic features Anxiety disorder, unspecified F41.1 Anxiety disorder type: generalized anxiety disorder
[2023-06-16] MEDS: ARIPiprazole 10 mg Tablet PO (08:02)
[2023-06-16 12:38] VITALS: BP 127/80; PULSE 81; RESP 15; TEMP 36.6; O2SAT 97
[2023-06-16 19:51] VITALS: BP 135/92; PULSE 81; RESP 15; TEMP 36.9; O2SAT 99
[2023-06-17 06:00] VITALS: BP 111/73; PULSE 109; RESP 17; TEMP 36.6; O2SAT 99
[2023-06-17] MEDS: ARIPiprazole 10 mg Tablet PO (08:08)
[2023-06-17 13:36] VITALS: BP 118/84; PULSE 107; RESP 16; TEMP 36.8; O2SAT 99
--- NOTE | 2023-06-17 14:47 | W.PM.NPUPNS ---
Subjective NPU Subjective: 23-year-old male admitted with suicidal ideation and depression with a history of PTSD and schizoaffective disorder depressed type. Patient had reported that he felt better. He stated that he was feeling antsy about going home. He states that he had been struggling with managing life stressors and simply needed to event to the police about being frustrated. He had isolated himself on the milieu. He reported no side effects from his medications. He had reported a past history of hearing voices but stated that he was not struggling with this currently. Mental Status Exam MSE Comments: This is an obese white male in hospital scrubs with poor grooming and fleeting eye contact. No abnormal movements except for mild psychomotor retardation. Cooperative with exam and mild distress. Speech was slightly normal in regards to rate rhythm and volume. Mood described as better. His affect was slightly irritable. Thought process was organized. Thought content: Patient denied suicidal or homicidal ideation, there were no delusions reported or noted, he denied auditory or visual hallucinations. Attention and concentration were intact and memory was somewhat reliable but none were formally tested. He is alert and oriented x3. Insight was poor. His judgment was limited, and impulse control appeared to be improving. Vitals/I&O/Wt Last Vital Signs Temp 98.2 F 06/17/23 13:36 Pulse 107 H 06/17/23 13:36 Resp 16 06/17/23 13:36 BP 118/84 06/17/23 13:36 Pulse Ox 99 06/17/23 13:36 O2 Del Method Room Air 06/17/23 06:00 Weight last 48 hrs Weight 112.945 kg Weight 112.945 kg Data NPU 06/14/23 16:51 06/14/23 16:51 A&P Assessment and plan (1) Major depressive disorder, recurrent: Qualifiers: Active/Remission status: currently active Major depression episode severity: severe Psychotic features: without psychotic features Qualified Code(s): F33.2 - Major depressive disorder, recurrent severe without psychotic features (2) Homicidal ideations: (3) Hallucinations: (4) Viral URI: (5) Anxiety disorder, unspecified: Qualifiers: Anxiety disorder type: generalized anxiety disorder Qualified Code(s): F41.1 - Generalized anxiety disorder (6) Schizoaffective disorder, depressive type: Plan This is a 23-year-old white male with a long history of auditory hallucinations with recent hospitalization here with limited follow-up with some addictive behaviors presenting after being placed on a 96-hour hold secondary to being found on the side of the road crying and having what he describes as a breakdown. Presenting desiring to discharge immediately but open to a trial of Abilify. 1. Continue Abilify 10 mg p.o. every morning. Initiate Wellbutrin xl 150mg in am. 2. Encourage individual, group and milieu therapy. 3. Continue every 15 minute checks for safety. 4. Encourage sober living treatment after discharge at the highest level of care to which he is willing to commit. Involuntary Hold Information 96 Hour Hold: 96 Hour Involuntary Admission: No 96 Hour Hold Ending Date: 06/20/23 96 Hour Hold Ending Time: 17:45 Attestations NPU Medical Necessity Statement*: Inpatient hospitalization is medically necessary and the clinically appropriate intervention at this time. We will monitor/initiate medications and make changes as indicated. The patient's likely length of stay 2-4 days. Coding Level of Care Code Acute Code for [facility] Fwd Diagnoses Major depressive disorder, recurrent F33.2 Active/Remission status: currently active Major depression episode severity: severe Psychotic features: without psychotic features Homicidal ideations R45.850 Hallucinations R44.3 Viral URI J06.9 Anxiety disorder, unspecified F41.1 Anxiety disorder type: generalized anxiety disorder Schizoaffective disorder, depressive type F25.1
[2023-06-17 20:12] VITALS: BP 121/87; PULSE 75; RESP 18; TEMP 36.8; O2SAT 98
[2023-06-17] MEDS: trazodone 50 mg Tablet PO (20:19)
[2023-06-18 06:00] VITALS: BP 121/80; PULSE 102; RESP 18; O2SAT 97
[2023-06-18] MEDS: ARIPiprazole 10 mg Tablet PO (08:52)
[2023-06-18] MEDS: buPROPion XL (24 HR) 150 mg Tablet PO (08:52)
[2023-06-18 14:00] VITALS: BP 115/72; PULSE 71; RESP 20; TEMP 36.9; O2SAT 96
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
[2023-06-18 16:02] VITALS: BP 115/72; PULSE 71; RESP 20; TEMP 36.9; O2SAT 96
[2023-06-18] MEDS: sertraline 50 mg Tablet 25 MG PO (16:34)
== END 2023-06-18 17:07 | disposition home or self-care (01) | DRG 885 ==
LOC: ER 17:51 → NP 18:30
PROVIDERS: Admitting Provider Psychiatry & Neurology Psychiatry; Emergency Provider Emergency Medicine; Visit Provider Psychiatry & Neurology Psychiatry
DX: F33.2 Major depressive disorder, recurrent severe without psychotic features (principal); R45.851 Suicidal ideations; R45.850 Homicidal ideations; F41.1 Generalized anxiety disorder; E66.9 Obesity, unspecified; Z68.34 Body mass index [BMI] 34.0-34.9, adult; F43.10 Post-traumatic stress disorder, unspecified; F25.1 Schizoaffective disorder, depressive type; J06.9 Acute upper respiratory infection, unspecified
CPT/HCPCS: 36415; 80053; 80306; 80307; 81003; 85025; 96372; 97165; 99285; J1200; J1630; J2060

== ENCOUNTER 2024-09-11 12:58 | Emergency (ER) | payer SELFPAY ==
[2024-09-11 13:00] VITALS: BP 116/73; PULSE 103; RESP 18; TEMP 36.7; O2SAT 99
--- NOTE | 2024-09-11 13:02 | XRR_ITS ---
PROCEDURE INFORMATION: Exam: XR Chest Exam date and time: 09/11/2024 1:36 PM Age: 24 years old Clinical indication: Chest pressure; Chest pain/dizziness/sob/heart racing/migraine; Additional info: Chest pain dizziness TECHNIQUE: Imaging protocol: Radiologic exam of the chest. Views: 1 view. COMPARISON: CR XR chest 1V [id number] 10/10/2018 5:40 PM FINDINGS: Lungs: Unremarkable. No consolidation. Pleural spaces: Unremarkable. No pleural effusion. No pneumothorax. Heart/Mediastinum: Unremarkable. No cardiomegaly. Bones/joints: Unremarkable. XR/XR chest 1V portable [id number] IMPRESSION: No acute findings.
--- NOTE | 2024-09-11 13:02 | ECG_ITS ---
[facility]: 2024-09-11 Pat Name: Mark Lyons Department: Room: Gender: Male Epic Interface Analyst: : 2000 Requested By: Tuan Cole Order Number: [id number] Mitch MD: HUY GAINES Measurements Intervals [place] Rate: 98 P: 43 ND: 135 QRS: 93 QRSD: 89 T: 43 QT: 320 QTc: 410 Interpretive Statements SINUS RHYTHM BORDERLINE RIGHT AXIS DEVIATION [QRS AXIS > 90] Compared to ECG 10/24/2020 21:07:19 No significant changes Electronically Signed On 09-13-2024 19:30:49 BUILDING MAINTENANCE SUPERINTENDENT by HUY GAINES [email or web address]
[2024-09-11 13:42] LABS: Basophils # 0.1 10^3/uL (0.0-0.1); Basophils % 0.6 %; Eosinophils # 0.1 10^3/uL (0.0-0.8); Hematocrit 48.5 % (37-53); Lymphocytes # 1.7 10^3/uL (0.8-4.8); Lymphocytes % 17.9 %; Mean Corpuscular HGB Conc 34.2 g/dL (30-55); Mean Corpuscular Hemoglobin 27.9 pg (27-33); Mean Corpuscular Volume 81.4 fl (82-101); Mean Platelet Volume 9.2 fL (7.4-10.4); Monocytes # 0.5 10^3/uL (0.2-0.9); Monocytes % 5.3 %; Neutrophils # 7.21 10^3/uL (1.8-7.7); Neutrophils % 74.9 %; Nucleated Red Blood Cells % 0 %; Platelet Count 369 10^3/cmm (157-399); Red Blood Count 5.96 10^6/uL (3.85-5.65); Red Cell Distribution Width 12.4 % (12.1-15.1); White Blood Count 9.63 10^3/uL (3.29-11.43)
[2024-09-11 13:51] LABS: Alanine Aminotransferase 62 U/L (0-41); Albumin Level 4.7 g/dL (3.5-5.2); Alkaline Phosphatase 99 U/L (40-130); Aspartate Amino Transferase 40 U/L (0-40); Blood Urea Nitrogen 12 mg/dL (6-20); Calcium 9.7 mg/dL (8.5-10.5); Carbon Dioxide 24 mmol/L (22-29); Chloride 100 mmol/L (98-107); Creatinine Clr Calc Pharmacy 147.1262; Globulin 3.1 g/dL (1.3-4.6); Glomerular Filtration Rate 92.6 mL/min (90-130); Glucose 124 mg/dL (65-115); Osmolality Calculated 289 mOsm/kg (285-295); Sodium 139 mmol/L (136-145); Total Bilirubin 1.4 mg/dL (0.15-1.2); Total Protein 7.8 g/dL (6.6-8.7)
[2024-09-11 13:53] LABS: Troponin(5th) Baseline < 6 ng/L (0-15)
[2024-09-11 14:15] LABS: Bacteria Urine None Seen /hpf; Hyaline Casts Urine 0.81 /lpf; RBC Urine 0-2 /hpf (0-2); Squamous Epithelial Cell Urine 0-5 /hpf (0-5); WBC Urine 0-5 /hpf (0-5)
[2024-09-11 14:19] LABS: Amphetamines Screen Urine Negative (Negative); Barbiturates Screen Urine Negative (Negative); Benzodiazepines Screen Urine Negative (Negative); Cocaine Screen Urine Negative (Negative); Opiate Screen Urine Negative (Negative); PCP Screen Urine Negative (Negative); THC Screen Urine Positive (Negative)
[2024-09-11 14:58] LABS: Add Urine Microscopic? YES; Blood Urine Neg (Negative); Glucose Urine UA Norm (Normal); Ketones Urine Negative (Negative); Nitrate Urine Negative (Negative); Protein Urine Trace (Negative); pH Urine 6 (5-7)
[2024-09-11 14:59] LABS: Bilirubin Urine Neg (Negative); Leukocyte Esterase Urine Negative (Negative); Urobilinogen Urine 4 mg/dL (Negative)
[2024-09-11 15:06] LABS: Urine Appearance Clear (CLEAR); Urine Color Dark Yellow (Yellow)
[2024-09-11 16:14] LABS: Troponin 5 2HR Delta 0.00001 ABS# (0-10)
== END 2024-09-11 16:58 | disposition left against medical advice (07) ==
PROVIDERS: Emergency Medicine; Emergency Provider Family Medicine
DX: Z53.21 Procedure and treatment not carried out due to patient leaving prior to being seen by health care provider (principal)
CPT/HCPCS: 36415; 71045; 80053; 80306; 81001; 84484; 85025; 93005; 99285